=== PATIENT | male | born 1940 | race Caucasian/White ===

== ENCOUNTER 2017-08-29 10:11 | Inpatient (IN) | payer MEDICARE ==
[2017-08-29] MEDS ORDERED: Metoprolol Tartrate 5 MG/5 ML VIAL ONE (11:12)
[2017-08-29 11:21] LABS: INR-International Normal Ratio 1.1; Prothrombin Time 14.5 SEC (12.0-14.7)
[2017-08-29 11:26] LABS: Acetaminophen Less than 6.0 mcg/mL (10.0-30.0); Alcohol Less than 10 mg/dL (Less than 10); PTT 28.2 SEC (22.9-36.1); Salicylate Less than 8.0 mg/dL (15.0-30.0)
[2017-08-29 11:31] LABS: Troponin I 0.019 ng/mL (< 0.028)
[2017-08-29] MEDS ORDERED: Labetalol HCl 100 MG/20 ML VIAL ONE (12:19)
[2017-08-29] MEDS ORDERED: Nitroglycerin 0.4 MG TAB (25 Tab Bottle) SL PRN (13:12)
[2017-08-29] MEDS ORDERED: Acetaminophen 325 MG TAB PO PRN (13:12)
[2017-08-29] MEDS ORDERED: Loratadine 10 MG TAB PO PRN (13:12)
[2017-08-29] MEDS ORDERED: Ondansetron ODT 4 MG TAB PO PRN (13:12)
[2017-08-29] MEDS ORDERED: Chloraseptic Spray 180 ml Bottle PO PRN (13:12)
[2017-08-29] MEDS ORDERED: Ondansetron HCl/PF 4 MG/2 ML Vial IVP PRN (13:12)
[2017-08-29] MEDS ORDERED: Diabetic Tussin 200 MG/10 ML UDCUP PO PRN (13:12)
[2017-08-29] MEDS ORDERED: Mag-Al 1200 mg/1200 mg/30 ML UDCUP PO PRN (13:12)
[2017-08-29] MEDS ORDERED: Sodium Chloride 0.65% Nasal 44 ML BOT EA NARE PRN (13:12)
[2017-08-29] MEDS ORDERED: HYDROcodone/Acetaminophen 5/325 mg Tablet PO PRN (13:12)
[2017-08-29] MEDS ORDERED: Milk Of Magnesia 30 ML UDCUP PO PRN (13:12)
[2017-08-29] MEDS ORDERED: Loperamide HCl 2 MG CAP PO PRN (13:12)
[2017-08-29] MEDS ORDERED: Senokot 8.6 MG TAB PO PRN (13:12)
[2017-08-29] MEDS ORDERED: Artificial Tears 18 DROP/0.9 ML EA EYE PRN (13:12)
[2017-08-29] MEDS ORDERED: cloNIDine 0.1 MG TAB PO PRN (13:12)
[2017-08-29] MEDS ORDERED: Labetalol HCl 100 MG/20 ML VIAL SLOW IVP PRN (13:12)
[2017-08-29] MEDS ORDERED: Zolpidem Tartrate 5 MG TAB PO PRN (13:12)
[2017-08-29] MEDS ORDERED: Eucerin (Mineral Oil/Petrolatum,White) 30 gm Jar TOP PRN (13:12)
[2017-08-29] MEDS ORDERED: Diltiazem 125 MG in Sodium Chloride 0.9% 100 ML IVPB SCH (13:12)
--- NOTE | 2017-08-29 13:37 | HP ---
PRIMARY CARE PHYSICIAN: Dr. Feliciano Quach at [place], [place]. REASON FOR ADMISSION: Hypertensive urgency, recurrent syncope and atrial fibrillation with rapid hernán tricular response. HISTORY OF PRESENT ILLNESS: A 76-year-old male with a history of atrial fibrillation on ch ronic anticoagulation therapy, who presented to [facility] with complaint of syncope . The patient reports that 2 weeks ago, he had one episode of syncope. At that time, he did not see primary care physician. He did not put any attention to medical service. Second time, he had a syn copal episode yesterday. Patient had a syncopal episode without any warning and he collapsed and imm ediately returned to full awareness without any postictal phase. He fell down and that is why he was hurting in his left elbow, left side of ribs and right hip. In the emergency room, patient had a tr auoh evaluation with the elbow x-ray, x-ray chest with rib x-ray and hip x-ray, pelvis, which were ne gative for any fracture or dislocation. The patient was found with atrial fibrillation with rapid ve ntricular response. He was taking metoprolol and chronic anticoagulation with Eliquis. The patient denies any Cardiology followup or any Cardiology workup. He was feeling lately dizziness. He denies any palpitation, chest pain, shortness of breath. He denies any headache, nausea, vomiting, diaphor esis. He denies any melena, hematochezia. He denies any UTI symptoms. Yesterday, when the patient had syncopal episode, he was concerned about, but he did not go to the hospital, but today he was con cerned about because he was feeling lightheaded and he was having high blood pressure at home and yonas t is why he evaluated at [place] [facility] and subsequently he was transferred to our emerg ency room for further evaluation and treatment. In our emergency room, he was hypertensive with a highest blood pressure 210/158. His heart rate was variable on the monitor between 110s-130s. When I saw this patient in the emergency room, he was christopher ving atrial fibrillation with rapid ventricular response, most of the time on monitor and he was hype rtensive. REVIEW OF SYSTEMS: The following complete review of systems was negative, unless otherwise mentioned in the HPI or below: Constitutional: Weight loss or gain, ability to conduct usual activities. Skin: Rash, itching. Eyes: Double vision, pain. ENT/Mouth: Nose bleeding, neck stiffness, pain, tenderness. Cardiovascular: Palpitations, dyspnea on exertion, orthopnea. Respiratory: Shortness of breath, wheezing, cough, hemoptysis, fever or night sweats. Gastrointestinal: Poor appetite, abdominal pain, heartburn, nausea, vomiting, constipation, or diarr hea. Genitourinary: Urgency, frequency, dysuria, nocturia. Musculoskeletal: Pain, swelling. Neurologic/Psychiatric: Anxiety, depression. Allergy/Immunologic: Skin rash, bleeding tendency. Please see my HPI for pertinent positive and negative. All other review of systems reviewed and nega tive except as mentioned in the HPI. PAST MEDICAL HISTORY: Atrial fibrillation, hypertension, dyslipidemia, chronic anticoagulation. PAST SURGICAL HISTORY: Appendicectomy and left knee surgery. PAST PSYCHIATRIC HISTORY: Reviewed and negative. SOCIAL HISTORY: Patient drinks beer every day basis. He is a former smoker. He quit smoking about 20 years ago. He denies any other illicit drug abuse. He is also still working in his ranch. FAMILY HISTORY: No strong family history of premature coronary artery disease, stroke or cancer. ALLERGIES: No known drug allergy. CURRENT HOME MEDICATIONS: Lipitor 10 mg p.o. at bedtime, Cymbalta 60 mg p.o. daily, Eliquis 5 mg p.o . b.i.d., metoprolol 50 mg p.o. twice daily. EMERGENCY ROOM COURSE: The patient was given tetanus toxoid at [facility]. He was given Lopressor 5 mg IV push x2. In our emergency room, patient is given another Lopressor 5 mg. PHYSICAL EXAMINATION: VITAL SIGNS: Currently, blood pressure 210/158, pulse 122 irregular, respiratory rate 22, temperatur e 98.2, saturation 98% on room air, weight 99.8 kilograms. GENERAL: Patient is currently alert, awake, no obvious acute distress. HEAD: Normocephalic, atraumatic. EYES: Pupils round, reactive to light. Extraocular muscle intact. ENT: Oropharynx within normal limits. Moist mucous membrane, no oral lesion, no pharyngeal erythema , no exudate. NECK: Supple, no JVD, no thyromegaly, no carotid bruit, no jugular venous distention. LUNGS: Clear to auscultation without any rhonchi or rales. CARDIAC: S1 and S2 irregular. No murmur elicited, no gallop, no rub. Rapid heart rate noted. ABDOMEN: Soft, bowel sounds present, nontender, nondistended. No organomegaly, no mass, no suprapub ic tenderness. BACK: Examination unremarkable, no CVA tenderness. EXTREMITIES: Upper extremity passive movements of all joints are normal. Lower extremity passive mo vements of all joints are normal. No edema. Good peripheral pulsation. SKIN: No skin rash. HEMATOLOGICAL SYSTEM: No lymphadenopathy. PSYCHIATRIC: Normal affect. NEUROLOGIC: Nonfocal examination. The patient moves all 4 limbs. Plantar bilateral flexor. PSYCHIATRIC: Normal affect. IMAGING DATA AND SIGNIFICANT LABORATORY DATA: 1. EKG showing atrial fibrillation with rapid ventricular response. CT brain showing chronic white matter ischemic changes, but no acute process. Elbow x-ray negative for any fracture or dislocation. Hip x-ray negative for any fracture or dislocation. Chest x-ray with rib x-ray negative for any ri b fracture. 2. CBC: WBC 9.6, hemoglobin 13.7, platelet 216, MCV 98.8, INR 1.2, D-dimer 1.05. 3. BMP: Sodium 138, potassium 4.5, chloride 101, carbon dioxide 23, anion gap 19, BUN 15, creatinin e 1.04, glucose 157, calcium 9.1, lactic acid 2.8. BNP 134. 4. LFT: AST 21, ALT 11, alkaline phosphatase 71, albumin 3.8, CK 147, CK-MB 4.2, troponin I 0.019 a nd then 0.019. Urinalysis, bilirubin present. Urine drug screen negative. Serum drug screen negati ve. Stool occult blood negative. ASSESSMENT AND PLAN/IMPRESSION: 1. Atrial fibrillation with rapid ventricular response. 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 He is given a total of 3 doses of metoprolol. Despite that, his heart rate was running 110-130. We decided to start Cardizem drip and titrate as tolerated. Cardiology will be con sulted. We will check TSH tomorrow. We will obtain echocardiography to assess ejection fraction and other structural abnormality. If heart rate goes below 70, then we will hold Cardizem drip. This p atient may need Cardiology evaluation and possible electrophysiologic evaluation if needed. He also has component of atrial flutter. Patient is already on chronic anticoagulation therapy with Eliquis 5 mg p.o. b.i.d., which we will continue. 2. Recurrent syncope. The patient had at least two episodes of syncopal episode within 2 weeks conc erning for cardiogenic etiology. At this point, Cardiology consulted. We are obtaining echocardiogr aphy. We are doing serial cardiac enzyme and ruling out acute coronary syndrome. He may need ischem ic evaluation as this patient did not have any ischemic workup. We will defer stress test versus car diac catheterization to Cardiology. Meanwhile, we will continue with aspirin 81 mg p.o. daily. We w ill continue metoprolol 50 mg p.o. twice daily and Lipitor 10 mg p.o. at bedtime. For risk stratific ation, we will check lipid profile tomorrow morning. 3. Elevated BNP, suspecting diastolic heart failure. We are doing echocardiography tomorrow. 4. Macrocytic anemia likely due to his alcohol abuse. We are going to start folic acid, thiamine, a nd vitamin B12 therapy. Counseling is given to avoid alcohol products. 5. Elevated D-dimer, suspicious for thromboembolic disorder is extremely low, but we will rule out P E with CT angiography. 6. Hypertensive urgency. We will continue nitropatch q.8 hourly. We will use labetalol p.r.n. basi s, clonidine p.r.n. basis and we will resume his metoprolol 50 mg twice daily. 7. Anxiety and depression. Continue Cymbalta 60 mg p.o. at bedtime. 8. Lactic acidosis likely related with tachycardia. Does not have any obvious suspicious for infect ion, but we will send urine culture given his urine is slightly abnormal. Currently, patient does no t have any infection symptoms and we will repeat lactic acid tomorrow. 9. Deep venous thrombosis prophylaxis. Patient is already on chronic anticoagulation therapy with E liquis. 10. Gastrointestinal prophylaxis, Pepcid 20 mg p.o. b.i.d. 11. Code status: The patient is FULL CODE. The patient's son is surrogate decision maker. Disposition plan based on clinical course. We are expecting patient's stay in hospital more than 2 m idnights given this patient may need electrophysiology evaluation and ischemic workup.
[2017-08-29] MEDS ORDERED: Nitroglycerin 2% Ointment 1 INCH/1 GM Packet TOP SCH (14:00)
[2017-08-29] MEDS ORDERED: ISOVUE-370 76%-LOCM 1 ML ONE (14:50)
--- NOTE | 2017-08-29 15:02 | CT ---
CTA CHEST WITH 3D VOLUME RENDERING: CLINICAL HISTORY: Elevated D-dimer. FINDINGS: There is no evidence of a significant filling defect of the pulmonary arterial system to indicate acu te pulmonary embolus. There are patchy opacities of the bilateral lower lobes favoring atelectasis. No pneumothorax or pleural effusion. There is scattered atherosclerotic vascular disease. There ar e nonspecific borderline-sized thoracic lymph nodes. Granulomatous calcification present. There is coronary artery calcium. IMPRESSION: 1. No evidence of a large, central pulmonary embolus. 2. Bilateral parenchymal opacities, predominantly lower lobe in distribution, indicating atelectasis . POS: DONNA
[2017-08-29] MEDS ORDERED: Losartan 25 MG TAB PO SCH (15:45)
[2017-08-29] MEDS: Metoprolol Tartrate 50 MG TAB PO SCH (19:48)
[2017-08-29] MEDS: Enoxaparin Sodium 100 MG/ML SYRINGE SC SCH (19:48)
[2017-08-29] MEDS: Famotidine 20 MG TAB PO SCH (19:49)
[2017-08-29] MEDS: Atorvastatin Calcium 10 MG TAB PO SCH (19:49)
[2017-08-29] MEDS ORDERED: Apixaban 5 MG TAB PO SCH (21:00)
[2017-08-29] MEDS ORDERED: Metoprolol Tartrate 50 MG TAB PO SCH (21:00)
[2017-08-30 04:13] LABS: #Lymphocytes 1.8 thou/uL (1.20-3.40); #Monocytes 1.3 thou/uL (0.11-0.59); #Neutrophils 6.5 thou/uL (1.40-6.50); %Basophils 0.3 % (0.0-1.0); %Eosinophils 0.2 % (0.0-10.0); %Lymphocytes 18.6 % (21.0-51.0); %Monocytes 13.3 % (0.0-10.0); %Neutrophils 67.6 % (42.0-75.0); Hemoglobin 13.9 g/dL (14.0-18.0); Mean Corpuscular HGB CONC 33.5 g/dL (32.0-36.0); Mean Corpuscular Hemoglobin 34.2 pg (27.0-31.0); Mean Platelet Volume 6.5 fL (7.4-10.4); Platelet Count 224 thou/uL (130-400); RBC Distribution Width 12.9 % (11.5-14.5); Red Blood Cell (RBC) Count 4.08 mill/uL (4.70-6.10); White Blood Cell (WBC) Count 9.6 thou/uL (4.8-10.8)
[2017-08-30 04:16] LABS: Lactic Acid 2.5 mmol/L (0.5-2.2)
[2017-08-30 04:19] LABS: ALT (SGPT) 8 U/L (8-55); AST (SGOT) 18 U/L (5-34); Albumin 3.8 g/dL (3.4-4.8); Alkaline Phosphatase 67 U/L (40-150); Anion Gap 13 mmol/L (10-20); BUN (Urea Nitrogen) 15 mg/dL (8.4-25.7); Bilirubin, Total 1.1 mg/dL (0.2-1.2); Calc. Creatinine Clearance 98 mL/min (70-130); Calcium 8.9 mg/dL (7.8-10.44); Carbon Dioxide 24 mmol/L (23-31); Cardiac Risk 2.9 (Less than 4.5); Chloride 102 mmol/L (98-107); Cholesterol 137 mg/dl (< 200 Desired); Estimated GFR-MDRD 83; Globulin 2.7 g/dL (2.4-3.5); Glucose 114 mg/dL (83-110); HDL Cholesterol 47 mg/dL (>60 Neg Risk); LDL Cholesterol, Calculated 70 mg/dL; Potassium 4.3 mmol/L (3.5-5.1); Protein, Total 6.5 g/dL (5.8-8.1); Sodium 135 mmol/L (136-145); Triglycerides 100 mg/dL (Less than 150)
[2017-08-30 07:58] LABS: Troponin I 0.021 ng/mL (< 0.028)
[2017-08-30] MEDS ORDERED: Aspirin 81 mg Enteric Coated Tablet PO SCH (09:00)
--- NOTE | 2017-08-30 09:48 | PDOC.PN ---
- Subjective Encounter Start Date: 08/30/17 Encounter Start Time: 07:50 -: old records requested/rev pt seen in stress lab, no overnight event, he is on cardizem drip, denies chest pain - Objective Resuscitation Status: Resuscitation Status FULL:Full Resuscitation MAR Reviewed: Yes Vital Signs & Weight: Vital Signs (12 hours) Temp Pulse Resp BP BP Pulse Ox 08/30/17 07:55 97.9 F 80 16 162/76 H 100 08/30/17 03:27 98.3 F 68 20 150/97 H 96 08/29/17 23:24 97.9 F 84 18 146/89 H 98 Weight Weight 216 lb I&O: 08/29/17 08/30/17 08/31/17 06:59 06:59 06:59 Intake Total 300 Output Total 800 Balance -500 Result Diagrams: 08/30/17 03:23 08/30/17 03:23 Radiology Reviewed by me: Yes (CTA negative for PE, echo-LVH) EKG Reviewed by me: Yes (afib) Phys Exam - Physical Examination Constitutional: NAD HEENT: PERRLA, moist MMs, sclera anicteric Neck: no JVD, supple Respiratory: no wheezing, no rales, no rhonchi Cardiovascular: no significant murmur, irregular Gastrointestinal: soft, non-tender, no distention, positive bowel sounds Musculoskeletal: no edema, pulses present large ecchymoses over right hip, callous with ulcer over left great toe Neurological: non-focal, normal sensation, moves all 4 limbs Psychiatric: normal affect, A&O x 3 Skin: no rash, normal turgor Dx/Plan (1) Atrial fibrillation with RVR Code(s): I48.91 - UNSPECIFIED ATRIAL FIBRILLATION Status: Acute (2) Hypertensive urgency Code(s): I16.0 - HYPERTENSIVE URGENCY Status: Acute (3) Lactic acidosis Code(s): E87.2 - ACIDOSIS Status: Acute (4) Syncope Code(s): R55 - SYNCOPE AND COLLAPSE Status: Acute (5) Anxiety Code(s): F41.9 - ANXIETY DISORDER, UNSPECIFIED Status: Chronic (6) Chronic anticoagulation Code(s): Z79.01 - [employer] (CURRENT) USE OF ANTICOAGULANTS Status: Chronic (7) Dyslipidemia Code(s): E78.5 - HYPERLIPIDEMIA, UNSPECIFIED Status: Chronic (8) Macrocytic anemia Code(s): D53.9 - NUTRITIONAL ANEMIA, UNSPECIFIED Status: Chronic (9) LVH (left ventricular hypertrophy) due to hypertensive disease Code(s): I11.9 - HYPERTENSIVE HEART DISEASE WITHOUT HEART FAILURE Status: Acute (10) Ecchymosis Code(s): R58 - HEMORRHAGE, NOT ELSEWHERE CLASSIFIED Status: Acute Comment: right thigh - Plan cont current plan of care * continue cardizem drip * cardiology following * today ordered stress test * medication reviewed as below * symptomatic treatment. * losartan added * metoprolol increased * monitor bruise * repeat labs tomorrow * further investigation based on stress test result * continue lovenox * repeat labs tomorrow Review of Systems - Review of Systems Eyes: negative: Pain, Vision Change, Conjunctivae Inflammation, Eyelid Inflammation, Redness, Other ENT: negative: Ear Pain, Ear Discharge, Nose Pain, Nose Discharge, Nose Congestion, Mouth Pain, Mouth Swelling, Throat Pain, Throat Swelling, Other Respiratory: negative: Cough, Dry, Shortness of Breath, Hemoptysis, SOB with Excertion, Pleuritic Pain, Sputum, Wheezing Cardiovascular: negative: chest pain, palpitations, orthopnea, paroxysmal nocturnal dyspnea, edema, light headedness, other Gastrointestinal: negative: Nausea, Vomiting, Abdominal Pain, Diarrhea, Constipation, Melena, Hematochezia, Other Genitourinary: negative: Dysuria, Frequency, Incontinence, Hematuria, Retention , Other Musculoskeletal: negative: Neck Pain, Shoulder Pain, Arm Pain, Back Pain, Hand Pain, Leg Pain, Foot Pain, Other Skin: Bruising. negative: Rash, Lesions, Syed, Other - Medications/Allergies Allergies/Adverse Reactions: Allergies Allergy/AdvReac Type Severity Reaction Status Date / Time No Known Allergies Allergy Verified 08/29/17 13:35 Medications: Current Medications Acetaminophen (Tylenol) 650 mg PO Q4H PRN PRN Reason: Headache/Fever or Pain Hydrocodone Bitart/Acetaminophen (Vincent 5/325) 1 tab PO Q4H PRN PRN Reason: Moderate Pain (4-6) Al Hydroxide/Mg Hydroxide (Maalox) 30 ml PO Q6H PRN PRN Reason: Heartburn or Indigestion Artificial Tears (Tears Naturale) 0 drop EA EYE PRN PRN PRN Reason: Dry Eyes Aspirin (Ecotrin) 81 mg PO DAILY [facility] Atorvastatin Calcium (Lipitor) 10 mg PO HS [facility] Last Admin: 08/29/17 19:49 Dose: 10 mg Clonidine (Catapres) 0.1 mg PO Q4H PRN PRN Reason: Systolic BP > 180 Cyanocobalamin (Vitamin B-12) 1,000 mcg PO DAILY [facility] Duloxetine HCl (Cymbalta) 60 mg PO DAILY [facility] Enoxaparin Sodium (Lovenox) 100 mg SC 0900,2100 [facility] Last Admin: 08/29/17 19:48 Dose: 100 mg Famotidine (Pepcid) 20 mg PO BID [facility] Last Admin: 08/29/17 19:49 Dose: 20 mg Folic Acid (Folvite) 1 mg PO DAILY [facility] Guaifenesin (Robitussin Sf) 200 mg PO Q4H PRN PRN Reason: Cough Diltiazem HCl 125 mg/ Sodium (Chloride) 125 mls @ 5 mls/hr IVPB INF [facility]; 5 MG/ HR PRN Reason: Protocol Last Admin: 08/29/17 15:38 Dose: 125 mls Labetalol HCl (Normodyne) 20 mg SLOW IVP Q4H PRN PRN Reason: Systolic BP > 180 Loperamide HCl (Imodium) 2 mg PO PRN PRN PRN Reason: Diarrhea/Loose Stools Loratadine (Claritin) 10 mg PO DAILYPRN PRN PRN Reason: Sinus Symptoms Losartan Potassium (Cozaar) 100 mg PO DAILY [facility] Magnesium Hydroxide (Milk Of Magnesium) 30 ml PO DAILYPRN PRN PRN Reason: Constipation Metoprolol Tartrate (Lopressor) 75 mg PO BID [facility] Last Admin: 08/29/17 19:48 Dose: 75 mg Mineral Oil/White Petrolatum (Eucerin Cream) 0 gm TOP BIDPRN PRN PRN Reason: Dry Skin Nitroglycerin (Nitrostat) 0.4 mg SL Q5MIN PRN PRN Reason: Chest Pain Ondansetron HCl (Zofran Odt) 4 mg PO Q6H PRN PRN Reason: Nausea/Vomiting Ondansetron HCl (Zofran) 4 mg IVP Q6H PRN PRN Reason: Nausea/Vomiting Phenol (Chloraseptic [place] 180 Ml Bot) 0 ml PO PRN PRN PRN Reason: Sore Throat Senna (Senokot) 2 tab PO HSPRN PRN PRN Reason: Constipation Sodium Chloride ([place] Nasal [place] 0.65%) 0 ml EA NARE QIDPRN PRN PRN Reason: Nasal Congestion Thiamine HCl (Thiamine) 100 mg PO DAILY [facility] Zolpidem Tartrate (Ambien) 5 mg PO HSPRN PRN PRN Reason: Insomnia
[2017-08-30] MEDS ORDERED: ADENOSINE 60 MG/20 ML VIAL ONE (10:40)
--- NOTE | 2017-08-30 11:04 | CON ---
DATE OF CONSULTATION: 08/29/2017 CARDIOLOGY CONSULTATION REASON FOR CONSULTATION: Syncope. HISTORY OF PRESENT ILLNESS: Mr. Kenroy Leavitt is a pleasant 76-year-old gentleman who was admitted for syncopal episodes. Mr. Leavitt states he has a long history of atrial fibrillation. He is on beta-blockers and Eliquis . He thinks Dr. Berg place him on these. He was doing well up until recently. He has had 2 ep isodes of syncope with no warning. On one occasion, he was sitting and talking with some friends and no warning at all, lost consciousness, found himself on the floor, another episode when he was walki ng. No warning at all, lost consciousness. He says he has never had episodes like that before. There is absolutely no warning that he was about to lose consciousness. He has not had chest pain, pressure, heaviness or squeezing. He says he is not sure that he has had much in the way of recent any cardiac evaluation, he thinks he is not. PAST MEDICAL HISTORY: 1. History of hypertension. 2. Atrial fibrillation according to the patient. 3. Dyslipidemia. REVIEW OF SYSTEMS: CONSTITUTIONAL: No significant weight gain or loss. VISION: No changes. HEARI NG: No changes. PULMONARY: No cough or wheezing. GASTROINTESTINAL: No nausea, vomiting, diarrhea . SKIN: No rashes. NEUROLOGIC: No unilateral weakness or numbness. PSYCHIATRIC: No unusual depr ession or anxiety. SKIN: No rashes. MEDICATIONS AT HOME: 1. Metoprolol 50 mg twice a day. 2. Eliquis 5 mg twice daily. 3. Lipitor 10 mg daily. 4. Cymbalta. 5. The patient was given metoprolol intravenously in the emergency room and later intravenous diltia zem. PHYSICAL EXAMINATION: VITAL SIGNS: Initial blood pressure was reported 210/158, pulse 122, and irregular, currently blood pressure 180/105, pulse 100-110, irregular. EYES: Sclerae nonicteric. MOUTH: Mucous membranes moist. NECK: Supple, no lymphadenopathy. LUNGS: Clear, no wheezing, rales or rhonchi. CARDIAC: Irregularly irregular. No murmur, rub or gallop. Heart sounds distant. ABDOMEN: Soft, nontender, no hepatosplenomegaly. EXTREMITIES: Warm, dry, no clubbing or cyanosis. Minimal peripheral edema. Pedal pulses and dorsal is pedis pulses. PSYCHIATRIC: Mood and affect normal. NEUROLOGIC: Grossly normal. SKIN: Warm and dry. ASSESSMENT: 1. Atrial fibrillation, chronic. 2. Syncopal episode very suspicious for dysrhythmia statistically pauses, common cause of this type of symptoms. 3. History of hypertension with recent labile hypertension. PLAN: 1. Add losartan. 2. Stress test and Echocardiogram to be done. 3. Continue to monitor. I strongly suspect the patient had dysrhythmia, suspicious for a pause. If he truly had a pause, pacemaker would be indicated.
[2017-08-30] MEDS: Metoprolol Tartrate 50 MG TAB PO SCH ×2 (11:48→21:35)
[2017-08-30] MEDS: Cyanocobalamin (Vitamin B-12) 1,000 MCG TAB PO SCH (11:48)
[2017-08-30] MEDS: DULoxetine 60 MG CAP PO SCH (11:48)
[2017-08-30] MEDS: Famotidine 20 MG TAB PO SCH ×2 (11:48→21:35)
[2017-08-30] MEDS: Losartan 25 MG TAB PO SCH (11:48)
[2017-08-30] MEDS: Folic Acid 1 MG TAB PO SCH (11:49)
[2017-08-30] MEDS: Enoxaparin Sodium 100 MG/ML SYRINGE SC SCH ×2 (11:49→21:35)
--- NOTE | 2017-08-30 12:50 | NM ---
MYOCARDIAL PERFUSION EVALUATION: INDICATION: Chest pain. RADIOPHARMACEUTICAL: 31.8 and 9.1 mCi Technetium 99m sestamibi IV administered at stress and rest. FINDINGS: Sonographic imaging reveals no evidence of a significant fixed or reversible defect of the left ventr icular ventura. Gated imaging reveals wall motion and contractility with calculated LVEF at 79%. IMPRESSION: 1. No significant ischemia or scar. 2. Normal left ventricular systolic function. POS: DONNA
[2017-08-30 13:11] LABS: Troponin I Less than 0.010 ng/mL (< 0.028)
[2017-08-30] MEDS ORDERED: Ketorolac Tromethamine 30 MG/ML VIAL IVP SCH (15:45)
--- NOTE | 2017-08-30 16:42 | PRG ---
DATE OF SERVICE: 08/30/2017 SUBJECTIVE: Mr. Leavitt complains of left lateral chest pain with a breath, it is localized to his ribs. It is an area he fell on. He says it hurts him which is hard to cough. He has some phlegm in his throat and his lungs, cannot get up. He has nontender. No syncope or near syncope. The patient still has intermittent rapid tachycardia. PHYSICAL EXAMINATION: VITAL SIGNS: Blood pressure earlier was 190/88, now 153/68, pulse 90, it is irregular. LUNGS: Clear. CARDIAC: Irregular, irregular. ABDOMEN: Soft, nontender. EXTREMITIES: There is no edema. LABORATORY DATA: Stress test showed no ischemia. Echocardiogram showed normal left ventricular func tion. ASSESSMENT: 1. Syncopal episode, highly suspicious for pause, but none documented yet. 2. Atrial fibrillation with a rapid rate. PLAN: 1. He has been advised not to drive till a diagnosis and therapy is made about the syncope. 2. We will change to oral Cardizem. 3. Dr. Castilol to see the patient tomorrow. Consideration for LINQ could be given to help ascertain th e source of his syncopal episodes.
[2017-08-30] MEDS: Atorvastatin Calcium 10 MG TAB PO SCH (21:36)
[2017-08-31 04:40] LABS: #Lymphocytes 1.9 thou/uL (1.20-3.40); #Monocytes 1.3 thou/uL (0.11-0.59); #Neutrophils 6.6 thou/uL (1.40-6.50); %Basophils 0.3 % (0.0-1.0); %Eosinophils 0.5 % (0.0-10.0); %Lymphocytes 19.3 % (21.0-51.0); %Monocytes 13.4 % (0.0-10.0); %Neutrophils 66.6 % (42.0-75.0); Hemoglobin 13.7 g/dL (14.0-18.0); Mean Corpuscular HGB CONC 34.2 g/dL (32.0-36.0); Mean Corpuscular Hemoglobin 34.8 pg (27.0-31.0); Mean Platelet Volume 6.4 fL (7.4-10.4); Platelet Count 237 thou/uL (130-400); RBC Distribution Width 12.7 % (11.5-14.5); Red Blood Cell (RBC) Count 3.95 mill/uL (4.70-6.10)
[2017-08-31 04:57] LABS: ALT (SGPT) 8 U/L (8-55); AST (SGOT) 18 U/L (5-34); Albumin 3.7 g/dL (3.4-4.8); Alkaline Phosphatase 63 U/L (40-150); Anion Gap 12 mmol/L (10-20); BUN (Urea Nitrogen) 19 mg/dL (8.4-25.7); Bilirubin, Total 1.1 mg/dL (0.2-1.2); Calc. Creatinine Clearance 78 mL/min (70-130); Calcium 9.3 mg/dL (7.8-10.44); Carbon Dioxide 28 mmol/L (23-31); Chloride 100 mmol/L (98-107); Estimated GFR-MDRD 66; Globulin 2.8 g/dL (2.4-3.5); Glucose 109 mg/dL (83-110); Lactic Acid 1.5 mmol/L (0.5-2.2); Potassium 4.4 mmol/L (3.5-5.1); Protein, Total 6.5 g/dL (5.8-8.1); Sodium 136 mmol/L (136-145)
[2017-08-31] MEDS ORDERED: Ketorolac Tromethamine 30 MG/ML VIAL IVP SCH (06:00)
[2017-08-31] MEDS: Famotidine 20 MG TAB PO SCH (08:40)
[2017-08-31] MEDS: Cyanocobalamin (Vitamin B-12) 1,000 MCG TAB PO SCH (08:40)
[2017-08-31] MEDS: DULoxetine 60 MG CAP PO SCH (08:40)
[2017-08-31] MEDS: Folic Acid 1 MG TAB PO SCH (08:40)
[2017-08-31] MEDS: Metoprolol Tartrate 50 MG TAB PO SCH (08:40)
[2017-08-31] MEDS: Losartan 25 MG TAB PO SCH (08:40)
[2017-08-31] MEDS ORDERED: Ciprofloxacin 500 MG TAB PO SCH ×2 (10:45→20:00)
--- NOTE | 2017-08-31 11:06 | PDOC.PN ---
- Subjective Encounter Start Date: 08/31/17 Encounter Start Time: 08:30 Patient seen and examined. No new complaints. No overnight events - Objective Resuscitation Status: Resuscitation Status FULL:Full Resuscitation MAR Reviewed: Yes Vital Signs & Weight: Vital Signs (12 hours) Temp Pulse Resp BP BP Pulse Ox 08/31/17 08:40 75 08/31/17 08:30 97.5 F L 65 18 148/86 H 98 08/31/17 03:54 97.8 F 75 17 170/95 H 92 L Weight Weight 216 lb I&O: 08/30/17 08/31/17 09/01/17 06:59 06:59 06:59 Intake Total 300 480 Output Total 800 Balance -500 480 Result Diagrams: 08/31/17 04:04 08/31/17 04:04 Radiology Reviewed by me: Yes (stress test is negative) EKG Reviewed by me: Yes (afib) Phys Exam - Physical Examination Constitutional: NAD HEENT: PERRLA, moist MMs, sclera anicteric Neck: no JVD, supple Respiratory: no wheezing, no rales, no rhonchi Cardiovascular: no significant murmur, irregular Gastrointestinal: soft, non-tender, no distention, positive bowel sounds Musculoskeletal: no edema, pulses present Neurological: non-focal, normal sensation Lymphatic: no nodes Psychiatric: normal affect, A&O x 3 Skin: no rash, normal turgor Dx/Plan (1) Atrial fibrillation with RVR Code(s): I48.91 - UNSPECIFIED ATRIAL FIBRILLATION Status: Acute (2) Hypertensive urgency Code(s): I16.0 - HYPERTENSIVE URGENCY Status: Acute (3) Lactic acidosis Code(s): E87.2 - ACIDOSIS Status: Acute (4) Syncope Code(s): R55 - SYNCOPE AND COLLAPSE Status: Acute (5) Anxiety Code(s): F41.9 - ANXIETY DISORDER, UNSPECIFIED Status: Chronic (6) Chronic anticoagulation Code(s): Z79.01 - USP (CURRENT) USE OF ANTICOAGULANTS Status: Chronic (7) Dyslipidemia Code(s): E78.5 - HYPERLIPIDEMIA, UNSPECIFIED Status: Chronic (8) Macrocytic anemia Code(s): D53.9 - NUTRITIONAL ANEMIA, UNSPECIFIED Status: Chronic (9) LVH (left ventricular hypertrophy) due to hypertensive disease Code(s): I11.9 - HYPERTENSIVE HEART DISEASE WITHOUT HEART FAILURE Status: Acute (10) Ecchymosis Code(s): R58 - HEMORRHAGE, NOT ELSEWHERE CLASSIFIED Status: Acute Comment: right thigh (11) Alcohol abuse Code(s): F10.10 - ALCOHOL ABUSE, UNCOMPLICATED Status: Chronic - Plan cont current plan of care, plan discussed w/ family * today he will have LINQ recorded placed * on oral cardizem and rate controlled * counselled to avoid alcohol abuse. * continue PT today * adjust medication today * discussed with family bedside * expecting discharge tomorrow * medication reviewed as below * symptomatic treatment * advised to avoid heavy machinery activity as per cardiology advise Review of Systems - Review of Systems Eyes: negative: Pain, Vision Change, Conjunctivae Inflammation, Eyelid Inflammation, Redness, Other ENT: negative: Ear Pain, Ear Discharge, Nose Pain, Nose Discharge, Nose Congestion, Mouth Pain, Mouth Swelling, Throat Pain, Throat Swelling, Other Respiratory: negative: Cough, Dry, Shortness of Breath, Hemoptysis, SOB with Excertion, Pleuritic Pain, Sputum, Wheezing Cardiovascular: negative: chest pain, palpitations, orthopnea, paroxysmal nocturnal dyspnea, edema, light headedness, other Gastrointestinal: negative: Nausea, Vomiting, Abdominal Pain, Diarrhea, Constipation, Melena, Hematochezia, Other Genitourinary: negative: Dysuria, Frequency, Incontinence, Hematuria, Retention , Other Musculoskeletal: negative: Neck Pain, Shoulder Pain, Arm Pain, Back Pain, Hand Pain, Leg Pain, Foot Pain, Other Skin: negative: Rash, Lesions, Syed, Bruising, Other - Medications/Allergies Allergies/Adverse Reactions: Allergies Allergy/AdvReac Type Severity Reaction Status Date / Time No Known Allergies Allergy Verified 08/29/17 13:35 Medications: Current Medications Acetaminophen (Tylenol) 650 mg PO Q4H PRN PRN Reason: Headache/Fever or Pain Hydrocodone Bitart/Acetaminophen ([place] 5/325) 1 tab PO Q4H PRN PRN Reason: Moderate Pain (4-6) Al Hydroxide/Mg Hydroxide (Maalox) 30 ml PO Q6H PRN PRN Reason: Heartburn or Indigestion Artificial Tears (Tears Naturale) 0 drop EA EYE PRN PRN PRN Reason: Dry Eyes Atorvastatin Calcium (Lipitor) [address] [facility] Last Admin: 08/30/17 21:36 Dose: 10 mg Ciprofloxacin (Cipro) 500 mg PO 06,1999 [facility] Ciprofloxacin (Cipro) 500 mg PO NOW [facility] Stop: 08/31/17 12:45 Clonidine (Catapres) 0.1 mg PO Q4H PRN PRN Reason: Systolic BP > 180 Cyanocobalamin (Vitamin B-12) 1,000 mcg PO DAILY [facility] Last Admin: 08/31/17 08:40 Dose: 1,000 mcg Diltiazem HCl (Cardizem Cd) 120 mg PO DAILY [facility] Last Admin: 08/31/17 08:40 Dose: 120 mg Duloxetine HCl (Cymbalta) 60 mg PO DAILY [facility] Last Admin: 08/31/17 08:40 Dose: 60 mg Famotidine (Pepcid) 20 mg PO BID [facility] Last Admin: 08/31/17 08:40 Dose: 20 mg Folic Acid (Folvite) 1 mg PO DAILY [facility] Last Admin: 08/31/17 08:40 Dose: 1 mg Guaifenesin (Robitussin Sf) 200 mg PO Q4H PRN PRN Reason: Cough Labetalol HCl (Normodyne) 20 mg SLOW IVP Q4H PRN PRN Reason: Systolic BP > 180 Loperamide HCl (Imodium) 2 mg PO PRN PRN PRN Reason: Diarrhea/Loose Stools Loratadine (Claritin) 10 mg PO DAILYPRN PRN PRN Reason: Sinus Symptoms Losartan Potassium (Cozaar) 100 mg PO DAILY [facility] Last Admin: 08/31/17 08:40 Dose: 100 mg Magnesium Hydroxide (Milk Of Magnesium) 30 ml PO DAILYPRN PRN PRN Reason: Constipation Metoprolol Tartrate (Lopressor) 75 mg PO BID [facility] Last Admin: 08/31/17 08:40 Dose: 75 mg Mineral Oil/White Petrolatum (Eucerin Cream) 0 gm TOP BIDPRN PRN PRN Reason: Dry Skin Nitroglycerin (Nitrostat) 0.4 mg SL Q5MIN PRN PRN Reason: Chest Pain Ondansetron HCl (Zofran Odt) 4 mg PO Q6H PRN PRN Reason: Nausea/Vomiting Ondansetron HCl (Zofran) 4 mg IVP Q6H PRN PRN Reason: Nausea/Vomiting Phenol (Chloraseptic [place] 180 Ml Bot) 0 ml PO PRN PRN PRN Reason: Sore Throat Senna (Senokot) 2 tab PO HSPRN PRN PRN Reason: Constipation Sodium Chloride ([place] Nasal [place] 0.65%) 0 ml EA NARE QIDPRN PRN PRN Reason: Nasal Congestion Thiamine HCl (Thiamine) 100 mg PO DAILY [facility] Last Admin: 08/31/17 08:40 Dose: 100 mg Zolpidem Tartrate (Ambien) 5 mg PO HSPRN PRN PRN Reason: Insomnia
[2017-08-31 12:07] VITALS: BMI 27.7
[2017-08-31 12:38] VITALS: TEMP 98
[2017-08-31] MEDS ORDERED: Lidocaine 1% w/Epinephrine 1:100K 30 ML VIAL ONE (13:56)
--- NOTE | 2017-08-31 16:01 | DIS ---
DATE OF ADMISSION: 08/29/2017 DATE OF DISCHARGE: 08/31/2017 PRIMARY CARE PHYSICIAN: Dr. Quach Head. DISCHARGE DISPOSITION: Home. PRIMARY DISCHARGE DIAGNOSES: Atrial fibrillation with rapid ventricular response, hypertensive urgen cy, lactic acidosis, LVH due to hypertensive heart disease, syncope, urinary tract infection. SECONDARY DISCHARGE DIAGNOSES: Macrocytic anemia, dyslipidemia, chronic anticoagulation, anxiety, al cohol abuse, paroxysmal atrial fibrillation. RADIOLOGICAL INVESTIGATION: CT angio was negative for PE. Echocardiography showed LVH with hyperten sive heart disease and diastolic dysfunction. Stress test was negative for any ischemia. PRIMARY PROCEDURES AND OPERATIONS: LINQ recorder placed. SIGNIFICANT LABORATORY DATA: WBC 10.0, hemoglobin 13.7, MCV 102, platelet 237. INR 1.1. BMP normal . LFT normal. Cardiac enzymes negative. Lactic acid 1.5. TSH 2.08, LDL 70. Serum drug screen neg ative. Urine culture grew Streptococcus. DISCHARGE MEDICATIONS: Eliquis 5 mg p.o. b.i.d., Lipitor 10 mg p.o. daily, Cipro 500 mg p.o. b.i.d., vitamin B12 1000 mcg p.o. daily, Cardizem-CD 120 mg p.o. daily, Cymbalta 60 mg p.o. daily, folic aci d 1 mg p.o. daily, losartan 100 mg p.o. daily, Lopressor 75 mg p.o. b.i.d., thiamine 100 mg p.o. jacob y. CONTRAINDICATIONS: None. CODE STATUS: FULL CODE. INPATIENT CONSULTANTS: Dr. Sue was following while in hospital. TEST RESULTS PENDING ON DISCHARGE: None. ALLERGIES: No known drug allergy. DISCHARGE PLAN: Post hospital, the patient will follow up with Dr. Quach Head as well as Dr. Sue as instructed. HOSPITAL COURSE: A 76-year-old male with above-mentioned medical problem who was admitted by me on 0 08/29/2017. Please see my HPI for further detail. At home, the patient was having recurrent syncopal episode. He was diagnosed with atrial fibrillation with rapid ventricular response. He was admitte d to telemetry floor. He was treated with Cardizem drip. Subsequently, Cardizem drip changed to Car dizem-CD. Patient's rate was under control. He remained in atrial fibrillation. His syncope was pr keyonna much consistent with cardiogenic, but we do not have any proven diagnosis yet and that is why Ca rdiology recommended LINQ recorder placed, which was done today. The patient remained stable. We pr ovided counseling to avoid alcohol abuse. While in hospital, he had hypertensive urgency and that is why we adjusted blood pressure medication as above. All new medication prescription sent to his pharmacy. The patient is seen and examined at bedside today. Please see my progress note from today for furthe r detail. Plan of care discussed with the patient and family member in detail. The patient was advi sed to avoid driving. Total time spent on discharge day 31 minutes.
[2017-08-31 16:31] VITALS: BP 131/64
--- NOTE | 2017-08-31 18:49 | PRG ---
DATE OF SERVICE: 08/31/2017. SUBJECTIVE: Mr. Leavitt is doing well today. He underwent a LINQ placement today. The patient has not had significant dysrhythmias in terms of bradyarrhythmia here. He has the LINQ placed to see if he has any bradyarrhythmias, in which case pacemaker be appropriate. He is doing well now. OBJECTIVE: VITAL SIGNS: Blood pressure 146/88, pulse 80, it is irregular. LUNGS: Clear. CARDIAC: Irregularly irregular. ASSESSMENT: Chronic atrial fibrillation, rate is better controlled. PLAN: 1. To go home on metoprolol 75 mg twice a day. 2. Diltiazem, Cardizem-CD 120 mg a day. 3. Eliquis 5 mg twice a day. 4. He has also been started on losartan 100 mg a day.
--- NOTE | 2017-08-31 19:52 | CON ---
DATE OF CONSULTATION: 08/31/2017 This is dictated as scribe for Dr. Haile Castillo. REFERRING PHYSICIAN: Fatoumata Sue M.D. REASON FOR CONSULTATION: Recurrent syncope and collapse. HISTORY OF PRESENT ILLNESS: Mr. Leavitt is a very pleasant 76-year-old gentleman who was recently a dmitted to [facility] for evaluation regarding recurrent syncope and collapse. He began to experience episodes over the past 2-3 months, where he is out and about resting and suddenly passes o ut. When he wakes up, he is slightly confused for only moments, does not remember what happened. He denies any perceived heart racing or palpitations leading up to these episodes. He denies any loss of bowel or bladder control upon waking and his family has witnessed these episodes and denies any po stictal like confusion. He does report that his father suddenly concerning for sudden ca rdiac and though, the patient reports 2 episodes as sudden syncope and collapse, his daughter a nd son are also at the bedside and can think of at least 3 additional instances where this has occurr ed. Overall, he does not have any warning symptoms leading up to his episodes and very concerning fo r cardiac arrhythmias. Also, he has a history of chronic atrial fibrillation and he is on Eliquis for stroke prophylaxis. O verall, this diagnosis has been in place for more than 25 years and he is largely asymptomatic and do ing well with rate control and beta-richelle therapy alone. That being said, when he was admitted his heart rate was elevated in the 110-135 beat per minute range and has since normalized with good vent ricular rate control. Overall, he denies heart racing, palpitations, chest pain, pressure, stroke or stroke-like symptoms. Positive for multiple episodes of syncope and collapse. PAST MEDICAL HISTORY: 1. Hypertension. 2. Atrial fibrillation, longstanding and persistent versus chronic. 3. Dyslipidemia. 4. Oral anticoagulation on Eliquis. REVIEW OF SYSTEMS: Twelve-point review of systems was conducted and negative except that listed abov e in the HPI. Also, positive for bruising. HOME MEDICATIONS: Metoprolol tartrate 50 mg b.i.d., Eliquis 5 mg b.i.d., Lipitor 10 mg daily, and Cy mbalta. FAMILY HISTORY: Father from sudden cardiac otherwise negative for early onset garth nary artery disease. SOCIAL HISTORY: Negative for alcohol, tobacco or illicit drug use. PHYSICAL EXAMINATION: VITAL SIGNS: Most recent vital signs are 98.0, pulse 80, blood pressure 146/88, respirations 18, oxy gen 98% on room air. GENERAL: This is a well-appearing, elderly gentleman who does have scattered areas of ecchymosis fro m his recent syncope and collapse. His affect is appropriate. His speech is clear. HEENT: He is normocephalic. Sclerae are anicteric. EOMs are intact. NECK: Supple without jugular venous distention. His thyroid is nonpalpable. CARDIOVASCULAR: His heart rate is irregularly irregular. PMI is nondisplaced. LUNGS: Clear to auscultation bilaterally without wheezes, crackles, or rhonchi. EXTREMITIES: Warm and dry to touch without clubbing, cyanosis or edema; however, scattered bruises a re evident. ABDOMEN: Soft, nontender without palpable masses and hepatojugular reflux is negative. NEUROLOGIC: Grossly intact and nonfocal and his gait was not assessed. DATABASE: Review of telemetry and EKGs revealed atrial fibrillation, now with controlled ventricular rate initially moderately elevated in the 110-130 beat per minute range on admission. LABORATORY DATA: WBC 10.0, hemoglobin 13.7, hematocrit 40.2, platelet count is 237. Potassium 4.4, creatinine 1.08. TSH is 2.08. IMPRESSION: 1. Recurrent syncope and collapse. 2. Chronic atrial fibrillation. 3. Elevated CHADS-VASc score of 3 on the basis of advanced age and hypertension, currently on Eliqui s for oral anticoagulation and tolerating well. 4. Normal left ventricular ejection fraction, 55%-60%. PLAN: Discussed syncope and collapse and possible cardiogenic origin with the patient and his family . All questions were answered. At this point, we will agree with the implantable loop recorder and will move forward with implant later today. Also, this will allow for further evaluation for cardiac arrhythmias as the source of his recurrent syncopal episodes in an outpatient setting. We discussed the increased risk associated with driving, with an undetermined source and cause of his collapse. Risks associated with loop recorder implantation include pain, swelling, and bleeding. The patient v oices understanding and agrees with the plan of care. Thank you for allowing us to participate in his plan of care.
[2017-08-31] MEDS ORDERED: Apixaban 5 MG TAB PO SCH (21:00)
--- NOTE | 2017-08-31 21:16 | OP ---
DATE OF SERVICE: 08/31/2017 LOOP RECORDER INSERTION REPORT REFERRING PHYSICIAN: Fatoumata Sue MD REASON FOR PROCEDURE: Mr. Leavitt is a 76-year-old man with history of syncope, chronic atrial fibr illation. Recurrent syncope is noted. Here for loop recorder insertion. DESCRIPTION OF PROCEDURE: The patient was prepped and draped in the precordial area and the subcutan eous lidocaine was used for analgesia. With a standard [employer] LINQ insertion tool kit, incision w as made in the 4th intercostal space and a LINQ recorder was inserted. The wound was closed with Davon mabond and Steri-Strips. CONCLUSION: Successful [employer] LINQ, model number LNQ11, serial number [id number] device ins ertion. PLAN: Routine monitoring.
== END 2017-08-31 16:58 | disposition home or self-care (01) | DRG 261 ==
LOC: ERS 10:11 → 2SW 12:46 → OBSVTOIN 12:47 → 2NO 17:34
PROVIDERS: ADMIT Internal Medicine; ATTEND Internal Medicine
PROC: 0JH632Z Insertion of Monitoring Device into Chest Subcutaneous Tissue and Fascia, Percutaneous Approach (ICD-10-PCS; principal; 2017-08-31)
DX: I48.2 Chronic atrial fibrillation (principal); E87.2 Acidosis; I50.30 Unspecified diastolic (congestive) heart failure; N39.0 Urinary tract infection, site not specified; I16.0 Hypertensive urgency; D53.9 Nutritional anemia, unspecified; I48.92 Unspecified atrial flutter; R55 Syncope and collapse; I11.0 Hypertensive heart disease with heart failure; B95.5 Unspecified streptococcus as the cause of diseases classified elsewhere; F10.10 Alcohol abuse, uncomplicated; E78.5 Hyperlipidemia, unspecified; F41.8 Other specified anxiety disorders; Z79.01 Long term (current) use of anticoagulants; S70.11XA Contusion of right thigh, initial encounter; Z87.891 Personal history of nicotine dependence; X58.XXXA Exposure to other specified factors, initial encounter
CPT/HCPCS: 33282; 36415; 71275; 78452; 80053; 80061; 80307; 83605; 84443; 84484; 85025; 87086; 93005; 93017; 93306; 94760; 96374; A9500; C1764; J0153; J1650; J1885; J2001; J7050

== ENCOUNTER 2018-09-14 10:24 | Outpatient (CLI) | payer MEDICARE ==
--- NOTE | 2018-09-14 10:54 | RAD ---
XR Chest Pa Lat @ [facility] HISTORY: COPD COMPARISON: 08/29/2017 FINDINGS: The heart size is normal. The lungs are well expanded without focal areas of consolidation, pneumothorax or pleural effusions. There are degenerative changes in the spine. Changes of COPD are present. IMPRESSION: No radiographic evidence of acute cardiopulmonary process.
== END 2018-09-14 10:25 | disposition home or self-care (01) ==
LOC: RAD 10:24
PROVIDERS: ATTEND Nurse Practitioner Family
DX: J44.0 Chronic obstructive pulmonary disease with (acute) lower respiratory infection (principal)
CPT/HCPCS: 71046